=== PATIENT | female | born 1985 | race Caucasian/White ===

== ENCOUNTER 2019-06-25 23:06 | Inpatient (IN) | payer MEDICAID, OTHER ==
[2019-06-25] MEDS ORDERED: Methylergonovine 0.2 MG/1 ML Amp IM PRN (23:20)
[2019-06-25] MEDS ORDERED: Nalbuphine 10 MG/1 ML Vial IVPUSH PRN (23:20)
[2019-06-25] MEDS ORDERED: Sodium Chloride 0.9% 10 ML SDV IV PRN (23:20)
[2019-06-25] MEDS ORDERED: Carboprost Tromethamine 250 MCG/1 ML Amp IM PRN (23:20)
[2019-06-25] MEDS ORDERED: Misoprostol 200 MCG Tab PO PRN (23:20)
[2019-06-25] MEDS ORDERED: Sodium Chloride 0.9% 10 ML Syringe FLUSH PRN (23:20)
[2019-06-25] MEDS ORDERED: Sodium Chloride 0.9% 2.5 ML Syringe FLUSH PRN (23:20)
[2019-06-25] MEDS ORDERED: Lidocaine 1% 50 ML MDV INJECT PRN (23:20)
[2019-06-25] MEDS ORDERED: Tranexamic Acid 1,000 MG in Sodium Chloride 0.9% 100 ML IV PRN (23:20)
[2019-06-25] MEDS ORDERED: Butorphanol 1 MG/ML SDV IVPUSH PRN (23:20)
[2019-06-25] MEDS ORDERED: Water For Irrigation,Sterile 1,000 ML Container IRR PRN (23:20)
[2019-06-25] MEDS ORDERED: Oxytocin/0.9 % Sodium Chloride 30 UNIT/500 ML BAG IV SCH (23:30)
[2019-06-25] MEDS ORDERED: Lactated Ringers 1,000 ML IV SCH (23:30)
--- NOTE | 2019-06-25 23:55 | PCM.PREANE ---
Preanesthetic Assessment - Anesthesia/Transfusion/Family Hx Family History of Anesthesia Reaction: No - Review of Systems General: No Symptoms Pulmonary: No Symptoms Cardiovascular: No Symptoms Gastrointestinal: No Symptoms Neurological: No Symptoms Other: Reports: None - Physical Assessment Height: 1.65 m Weight: 96.162 kg ASA Class: 2E Mental Status: Alert & Oriented x3 Dentition: Reports: Normal Dentition Lungs: Clear to Auscultation, Normal Respiratory Effort Cardiovascular: Regular Rate, Regular Rhythm - Lab Values: Laboratory Last Values WBC 11.14 K/uL (4.0-11.0) H 06/25/19 23:36 RBC 4.19 M/uL (4.30-5.90) L 06/25/19 23:36 Hgb 12.0 g/dL (12.0-16.0) 06/25/19 23:36 Hct 36.6 % (36.0-46.0) 06/25/19 23:36 MCV 87.4 fL (80.0-98.0) 06/25/19 23:36 MCH 28.6 pg (27.0-32.0) 06/25/19 23:36 MCHC 32.8 g/dL (31.0-37.0) 06/25/19 23:36 RDW Std Deviation 46.9 fl (28.0-62.0) 06/25/19 23:36 RDW Coeff of Yaneth 15 % (11.0-15.0) 06/25/19 23:36 Plt Count 282 K/uL (150-400) 06/25/19 23:36 MPV 10.30 fL (7.40-12.00) 06/25/19 23:36 Nucleated RBC % 0.0 /100WBC 06/25/19 23:36 Nucleated RBCs # 0 K/uL 06/25/19 23:36 - Allergies Allergies/Adverse Reactions: Allergies Allergy/AdvReac Type Severity Reaction Status Date / Time No Known Allergies Allergy Verified 03/14/19 13:04 - Acknowledgements Anesthesia Type Planned: Epidural Pt an Appropriate Candidate for the Planned Anesthesia: Yes Alternatives and Risks of Anesthesia Discussed w Pt/Guardian: Yes Pt/Guardian Understands and Agrees with Anesthesia Plan: Yes PreAnesthesia Questionnaire - CURRENT (IN HOUSE) MEDS Current Meds: Current Medications Butorphanol Tartrate (Stadol) 1 mg IVPUSH Q1H PRN PRN Reason: Pain Carboprost Tromethamine (Hemabate Ds) 250 mcg IM ASDIRECTED PRN PRN Reason: Post Hemorrhage Tranexamic Acid 1,000 mg/ (Sodium Chloride) 110 mls @ 660 mls/hr IV ONETIME PRN PRN Reason: Bleeding Lactated Ringer's (Ringers, Lactated) 1,000 mls @ 150 mls/hr IV ASDIRECTED ANANDA Oxytocin/Sodium Chloride (Oxytocin 30 Unit/500 Ml-Ns) 30 unit in 500 mls @ 250 mls/hr IV TITRATE ANANDA Lidocaine HCl (Xylocaine 1%) 50 ml INJECT ONETIME PRN PRN Reason: Laceration repair Methylergonovine Maleate (Methergine) 0.2 mg IM ASDIRECTED PRN PRN Reason: Post Hemorrhage Misoprostol (Cytotec) 200 mcg PO ONETIME PRN PRN Reason: Post Hemorrhage Nalbuphine HCl (Nubain) 10 mg IVPUSH Q1H PRN PRN Reason: Pain (severe 7-10) Sodium Chloride (Saline Flush) 10 ml FLUSH ASDIRECTED PRN PRN Reason: Keep Vein Open Sodium Chloride (Saline Flush) 2.5 ml FLUSH ASDIRECTED PRN PRN Reason: Keep Vein Open Sodium Chloride (Normal Saline) 10 ml IV ASDIRECTED PRN PRN Reason: IV Use Sterile Water (Sterile Water For Irrigation) 1,000 ml IRR ASDIRECTED PRN PRN Reason: delivery
[2019-06-26] MEDS ORDERED: fentaNYL 100 MCG/2 ML SDV ONE (00:01)
[2019-06-26] MEDS ORDERED: Bupivicaine/fentaNYL/NS 250 ML ONE (00:02)
[2019-06-26] MEDS ORDERED: Bupivacaine 0.25% 10 ML SDV ONE (00:02)
--- NOTE | 2019-06-26 00:53 | PCM.LDHP ---
L&D History of Present Illness - General Date of Service: 06/26/19 Admit Problem/Dx: Patient Status Order with Admit Dx/Problem 06/25/19 23:09 Patient Status [ADT] Routine 06/25/19 23:20 Patient Status [ADT] Routine Admission Diagnosis/Problem Admission Diagnosis/Problem Source of Information: Patient History Limitations: Reports: No Limitations - History of Present Illness Improves with: Reports: None Worsens with: Reports: None Associated Symptoms: Reports: N - Related Data Allergies/Adverse Reactions: Allergies Allergy/AdvReac Type Severity Reaction Status Date / Time No Known Allergies Allergy Verified 03/14/19 13:04 H&P Review of Systems - Review of Systems: Review Of Systems: See Below General: Reports: No Symptoms HEENT: Reports: No Symptoms Pulmonary: Reports: No Symptoms Cardiovascular: Reports: No Symptoms Gastrointestinal: Reports: No Symptoms Genitourinary: Reports: No Symptoms Musculoskeletal: Reports: No Symptoms Skin: Reports: No Symptoms Psychiatric: Reports: No Symptoms Neurological: Reports: No Symptoms Hematologic/Lymphatic: Reports: No Symptoms Immunologic: Reports: No Symptoms L&D Exam - Exam Exam: See Below - Vital Signs Weight: 96.162 kg - OB Specific Fundal Height In cm: 38 Contraction Intensity: Moderate Movement: Active Heart Tones: Present Presentation: Vertex - Vargas Score Vargas Score Cervix Position: Anterior Vargas Score Consistency: Soft Vargas Score Effacement: >80% Vargas Score Dilation: > 5 cm Vargas Score Infant's Station: -2 Vargas Score Total: 11 - Exam General: Alert, Oriented HEENT: PERRLA, Conjunctiva Clear, EACs Clear, EOMI, Hearing Intact, Mucosa Moist & Colwell, Nares Patent, Normal Nasal Septum, Posterior Pharynx Clear, TMs Clear Neck: Supple, Trachea Midline Lungs: Clear to Auscultation, Normal Respiratory Effort Cardiovascular: Regular Rate, Regular Rhythm GI/Abdominal Exam: Normal Bowel Sounds, Soft, Non-Tender, No Organomegaly, No Distention, No Abnormal Bruit, No Mass, Pelvis Stable Rectal Exam: Normal Exam, Normal Rectal Tone Genitourinary: Normal external exam, Normal bimanual exam, Normal speculum exam Back Exam: Normal Inspection, Full Range of Motion Extremities: Normal Inspection, Normal Range of Motion, Non-Tender, No Pedal Edema, Normal Capillary Refill Skin: Warm, Dry, Intact Neurological: Cranial Nerves Intact, Reflexes Equal Bilateral Psychiatric: Alert, Normal Affect, Normal Mood - Patient Data Lab Results Last 24 hrs: Laboratory Results - last 24 hr 06/25/19 06/25/19 Range/Units 23:36 23:36 WBC 11.14 H (4.0-11.0) K/uL RBC 4.19 L (4.30-5.90) M/uL Hgb 12.0 (12.0-16.0) g/dL Hct 36.6 (36.0-46.0) % MCV 87.4 (80.0-98.0) fL MCH 28.6 (27.0-32.0) pg MCHC 32.8 (31.0-37.0) g/dL RDW Std Deviation 46.9 (28.0-62.0) fl RDW Coeff of Yaneth 15 (11.0-15.0) % Plt Count 282 (150-400) K/uL MPV 10.30 (7.40-12.00) fL Nucleated RBC % 0.0 /100WBC Nucleated RBCs # 0 K/uL Blood Type O POSITIVE Antibody Screen NEGATIVE Result Diagrams: 06/25/19 23:36 Problem List Initiated/Reviewed/Updated: Yes Orders Last 24hrs: Active Orders 24 hr Category Date Time Status Patient Status [ADT] Routine ADT 06/25/19 23:20 Active Heart Tones [RC] CONTINUOUS Care 06/25/19 23:20 Active Non Stress Test [RC] PER UNIT ROUTINE Care 06/25/19 23:09 Active Non Stress Test [RC] PER UNIT ROUTINE Care 06/25/19 23:20 Active May Shower [RC] ASDIRECTED Care 06/25/19 23:20 Active Notify Provider [RC] PRN Care 06/25/19 23:20 Active Peripheral IV Care [RC] . DIRECTED Care 06/25/19 23:20 Active Up ad [place] [RC] ASDIRECTED Care 06/25/19 23:09 Active Up ad [place] [RC] ASDIRECTED Care 06/25/19 23:20 Active Vaginal Exam [RC] Click to Edit Care 06/25/19 23:09 Active Vaginal Exam [RC] PRN Care 06/25/19 23:20 Active Vital Signs [RC] PER UNIT ROUTINE Care 06/25/19 23:09 Active Vital Signs [RC] PER UNIT ROUTINE Care 06/25/19 23:20 Active RAPID PLASMA REAGIN, QUANT [REF] Routine Lab 06/25/19 23:36 Received Butorphanol [Stadol] Med 06/25/19 23:20 Active 1 mg IVPUSH Q1H PRN Carboprost Tromethamine [Hemabate DS] Med 06/25/19 23:20 Active 250 mcg IM ASDIRECTED PRN Lactated Ringers [Ringers, Lactated] 1,000 ml Med 06/25/19 23:30 Active IV ASDIRECTED Lidocaine 1% [Xylocaine 1%] Med 06/25/19 23:20 Active 50 ml INJECT ONETIME PRN Methylergonovine [Methergine] Med 06/25/19 23:20 Active 0.2 mg IM ASDIRECTED PRN Nalbuphine [Nubain] Med 06/25/19 23:20 Active 10 mg IVPUSH Q1H PRN Oxytocin/0.9 % Sodium Chloride [Oxytocin 30 Unit/500 ML Med 06/25/19 23:30 Active -NS] 30 unit in 500 ml IV TITRATE Sodium Chloride 0.9% [Normal Saline] Med 06/25/19 23:20 Active 10 ml IV ASDIRECTED PRN Sodium Chloride 0.9% [Saline Flush] Med 06/25/19 23:20 Active 10 ml FLUSH ASDIRECTED PRN Sodium Chloride 0.9% [Saline Flush] Med 06/25/19 23:20 Active 2.5 ml FLUSH ASDIRECTED PRN Tranexamic Acid [Cyklokapron] 1,000 mg Med 06/25/19 23:20 Active Sodium Chloride 0.9% [Normal Saline] 100 ml IV ONETIME Water For Irrigation,Sterile [Sterile Water for Med 06/25/19 23:20 Active Irrigation] 1,000 ml IRR ASDIRECTED PRN miSOPROStoL [Cytotec] Med 06/25/19 23:20 Active 200 mcg PO ONETIME PRN Scalp Electrode [WOMSER] Per Unit Routine Oth 06/25/19 23:20 Ordered Peripheral IV Insertion Adult [OM.PC] Routine Oth 06/25/19 23:20 Ordered Resuscitation Status Routine Resus Stat 06/25/19 23:09 Ordered Medication Orders Butorphanol Tartrate (Stadol) 1 mg IVPUSH Q1H PRN PRN Reason: Pain Carboprost Tromethamine (Hemabate Ds) 250 mcg IM ASDIRECTED PRN PRN Reason: Post Hemorrhage Tranexamic Acid 1,000 mg/ (Sodium Chloride) 110 mls @ 660 mls/hr IV ONETIME PRN PRN Reason: Bleeding Lactated Ringer's (Ringers, Lactated) 1,000 mls @ 150 mls/hr IV ASDIRECTED ANANDA Oxytocin/Sodium Chloride (Oxytocin 30 Unit/500 Ml-Ns) 30 unit in 500 mls @ 250 mls/hr IV TITRATE ANANDA Lidocaine HCl (Xylocaine 1%) 50 ml INJECT ONETIME PRN PRN Reason: Laceration repair Methylergonovine Maleate (Methergine) 0.2 mg IM ASDIRECTED PRN PRN Reason: Post Hemorrhage Misoprostol (Cytotec) 200 mcg PO ONETIME PRN PRN Reason: Post Hemorrhage Nalbuphine HCl (Nubain) 10 mg IVPUSH Q1H PRN PRN Reason: Pain (severe 7-10) Sodium Chloride (Saline Flush) 10 ml FLUSH ASDIRECTED PRN PRN Reason: Keep Vein Open Sodium Chloride (Saline Flush) 2.5 ml FLUSH ASDIRECTED PRN PRN Reason: Keep Vein Open Sodium Chloride (Normal Saline) 10 ml IV ASDIRECTED PRN PRN Reason: IV Use Sterile Water (Sterile Water For Irrigation) 1,000 ml IRR ASDIRECTED PRN PRN Reason: delivery Assessment/Plan Comment:: IUP 39wks + in active labor.
[2019-06-26] MEDS ORDERED: Acetaminophen 500 MG Tab PO PRN (01:10)
[2019-06-26] MEDS ORDERED: Ibuprofen 400 MG Tab PO PRN (01:10)
[2019-06-26] MEDS ORDERED: Lanolin 100% Cream 7 GM Tube TOP PRN (01:10)
[2019-06-26] MEDS ORDERED: Benzocaine/Menthol 20%-0.5% Spray 78 GM Cannister TOP PRN (01:10)
[2019-06-26] MEDS ORDERED: oxyCODONE 5 MG Tab PO PRN (01:10)
[2019-06-26] MEDS ORDERED: Docusate Sodium 100 MG Cap PO PRN (01:10)
[2019-06-26] MEDS ORDERED: Witch Hazel Medicated Pads 40/Jar TOP PRN (01:10)
[2019-06-26] MEDS ORDERED: Bisacodyl 10 MG Supp RECTAL PRN (01:10)
[2019-06-26] MEDS: Ibuprofen 800 MG Tab PO PRN (02:00)
[2019-06-26] MEDS: Acetaminophen 500 MG Tab PO PRN ×3 (02:01→18:13)
--- NOTE | 2019-06-26 03:10 | OR ---
SURGEON: Stewart Brunson MD DATE OF PROCEDURE: Ms. Bahena is a 34-year-old patient. She is para 5-0-0-5. She is 39 weeks. She is followed in our clinic primarily by our nurse senior visual designer, Kathy Curtis. The patient's GBS status is negative. She had no complication prenatally. She is admitted in active labor. At the time of admission, she was 5 cm, complete, vertex, with bulging bag of water. She had epidural anesthesia for labor analgesia. The patient progressed to complete, complete. She had an artificial rupture of membrane by tn with clear fluid, and she proceeded to have a normal spontaneous vaginal delivery of a male fetus, cried immediately, and scores reported to be 8 and 9. There was 1 nuchal cord. There was 1 superficial perineal laceration, did not need stitching; no labial or any other laceration. Estimated blood loss was 250 to 300 mL. The placenta delivered spontaneous, complete, and intact; and heart rate was category I through the entire process of labor. YARITZA / ARIES /[id number]
--- NOTE | 2019-06-26 03:51 | PCM48HPAN ---
Post Anesthesia Note - EVALUATION WITHIN 48HRS OF ANESTHETIC Vital Signs in Normal Range: Yes Patient Participated in Evaluation: Yes Respiratory Function Stable: Yes Airway Patent: Yes Cardiovascular Function Stable: Yes Hydration Status Stable: Yes Pain Control Satisfactory: Yes Nausea and Vomiting Control Satisfactory: Yes Mental Status Recovered: Yes
[2019-06-27] MEDS: Ibuprofen 800 MG Tab PO PRN (05:27)
--- NOTE | 2019-06-27 09:13 | PCM.PNPP ---
- General Info Date of Service: 06/27/19 Functional Status: Reports: Pain Controlled - Review of Systems General: Reports: No Symptoms HEENT: Reports: No Symptoms Pulmonary: Reports: No Symptoms Cardiovascular: Reports: No Symptoms Gastrointestinal: Reports: No Symptoms Genitourinary: Reports: No Symptoms Musculoskeletal: Reports: No Symptoms Skin: Reports: No Symptoms Neurological: Reports: No Symptoms Psychiatric: Reports: No Symptoms - General Info Date of Service: 06/27/19 - Patient Data Vital Signs - Most Recent: Last Vital Signs Temp 36.3 C 06/27/19 07:52 Pulse 55 L 06/27/19 07:52 Resp 16 06/27/19 07:52 BP 112/68 06/27/19 07:52 Pulse Ox 97 06/27/19 07:52 Weight - Most Recent: 96.162 kg Lab Results - Last 24 Hours: Laboratory Results - last 24 hr 06/27/19 Range/Units 06:32 Hgb 11.8 L (12.0-16.0) g/dL Hct 36.1 (36.0-46.0) % Med Orders - Current: Current Medications Acetaminophen (Tylenol Extra Strength) 500 mg PO Q4H PRN PRN Reason: Pain Acetaminophen (Tylenol Extra Strength) 1,000 mg PO Q4H PRN PRN Reason: Pain Last Admin: 06/26/19 18:13 Dose: 1,000 mg Benzocaine/Menthol (Dermoplast Pain Relief 20%-0.5% [place]) 78 gm TOP ASDIRECTED PRN PRN Reason: Perineal Comfort Measure Last Admin: 06/26/19 02:56 Dose: 78 gm Bisacodyl (Dulcolax) 10 mg RECTAL ONETIME PRN PRN Reason: Constipation Butorphanol Tartrate (Stadol) 1 mg IVPUSH Q1H PRN PRN Reason: Pain Carboprost Tromethamine (Hemabate Ds) 250 mcg IM ASDIRECTED PRN PRN Reason: Post Hemorrhage Docusate Sodium (Colace) 100 mg PO BID PRN PRN Reason: Constipation Emollient Ointment (Lansinoh Hpa) 0 gm TOP ASDIRECTED PRN PRN Reason: Sore Nipples Tranexamic Acid 1,000 mg/ (Sodium Chloride) 110 mls @ 660 mls/hr IV ONETIME PRN PRN Reason: Bleeding Lactated Ringer's (Ringers, Lactated) 1,000 mls @ 150 mls/hr IV ASDIRECTED [facility] Last Admin: 06/25/19 23:30 Dose: 500 mls/hr Oxytocin/Sodium Chloride (Oxytocin 30 Unit/500 Ml-Ns) 30 unit in 500 mls @ 250 mls/hr IV TITRATE [facility] Last Admin: 06/26/19 01:10 Dose: 250 mls/hr Ibuprofen (Motrin) 400 mg PO Q4H PRN PRN Reason: Pain Ibuprofen (Motrin) 800 mg PO Q6H PRN PRN Reason: Pain Last Admin: 06/27/19 05:27 Dose: 800 mg Lidocaine HCl (Xylocaine 1%) 50 ml INJECT ONETIME PRN PRN Reason: Laceration repair Methylergonovine Maleate (Methergine) 0.2 mg IM ASDIRECTED PRN PRN Reason: Post Hemorrhage Misoprostol (Cytotec) 200 mcg PO ONETIME PRN PRN Reason: Post Hemorrhage Nalbuphine HCl (Nubain) 10 mg IVPUSH Q1H PRN PRN Reason: Pain (severe 7-10) Oxycodone HCl (Oxycodone) 5 mg PO Q2H PRN PRN Reason: Pain Sodium Chloride (Saline Flush) 10 ml FLUSH ASDIRECTED PRN PRN Reason: Keep Vein Open Sodium Chloride (Saline Flush) 2.5 ml FLUSH ASDIRECTED PRN PRN Reason: Keep Vein Open Sodium Chloride (Normal Saline) 10 ml IV ASDIRECTED PRN PRN Reason: IV Use Sterile Water (Sterile Water For Irrigation) 1,000 ml IRR ASDIRECTED PRN PRN Reason: delivery Witch Yoselyn (Tucks) 1 pad TOP ASDIRECTED PRN PRN Reason: comfort care Discontinued Medications Bupivacaine HCl (Sensorcaine-Mpf 0.25%) Confirm Administered Dose 10 ml .ROUTE .[employer]-MED ONE Stop: 06/26/19 00:03 Last Admin: 06/26/19 07:46 Dose: Not Given Fentanyl (Sublimaze) Confirm Administered Dose 100 mcg .ROUTE .STK-MED ONE Stop: 06/26/19 00:02 Last Admin: 06/26/19 07:46 Dose: Not Given Fentanyl/Bupivacaine HCl (Fentanyl/Bupivacaine/Ns 2 Mcg-0.125% 250 Ml) Confirm Administered Dose 250 mls @ as directed .ROUTE .STK-MED ONE Stop: 06/26/19 00:03 Last Admin: 06/26/19 07:46 Dose: Not Given - Infant Interaction Disposition, : [place] in Room with Family Interaction: Holding Infant Feeding: Attempted ; Nursed Fair/Poor Support Person: - Recovery Exam Fundal Tone: Firm Fundal Level: At Umbilicus Fundal Placement: Midline Lochia Amount: Scant Lochia Color: Rubra/Red Perineum Description: Other (see below) Other Perinuem Description: skid fofana Episiotomy/Laceration: None Bladder Status: Voiding - Exam General: Alert, Oriented HEENT: Pupils Equal Neck: Supple Lungs: Clear to Auscultation, Normal Respiratory Effort Cardiovascular: Regular Rate, Regular Rhythm GI/Abdominal Exam: Normal Bowel Sounds, Soft, Non-Tender, No Organomegaly, No Distention, No Abnormal Bruit, No Mass, Pelvis Stable Extremities: Normal Inspection, Normal Range of Motion, Non-Tender, No Pedal Edema, Normal Capillary Refill Skin: Warm, Dry, Intact Wound/Incisions: Healing Well Neurological: No New Focal Deficit Psy/Mental Status: Alert, Normal Affect, Normal Mood - Problem List Review Problem List Initiated/Reviewed/Updated: Yes - My Orders Last 24 Hours: My Active Orders 06/26/19 Lunch Regular Diet [DIET] - Assessment Assessment:: Status post normal spontaneous vaginal delivery patient is doing well we would send her home today to be followed in the office at 6 weeks - Plan Plan:: IUP 39wks + in active labor.
== END 2019-06-27 11:30 | disposition home or self-care (01) | DRG 807 ==
LOC: MW.OBCHECK 23:06 → MW.OB 23:07 → MW.OBCHECK 23:20 → OBSVTOIN 06-26 01:05 → MW.OB 06-26 04:45
PROVIDERS: ADMIT Obstetrics & Gynecology; ATTEND Obstetrics & Gynecology
PROC: 10E0XZZ Delivery of Products of Conception, External Approach (ICD-10-PCS; principal; 2019-06-26)
PROC: 10907ZC Drainage of Amniotic Fluid, Therapeutic from Products of Conception, Via Natural or Artificial Opening (ICD-10-PCS; 2019-06-26)
PROC: 3E0R3BZ Introduction of Anesthetic Agent into Spinal Canal, Percutaneous Approach (ICD-10-PCS; 2019-06-26)
DX: O69.81X0 Labor and delivery complicated by cord around neck, without compression, not applicable or unspecified (principal); Z37.0 Single live birth; Z3A.37 37 weeks gestation of pregnancy
CPT/HCPCS: 01967; 36415; 59025; 59409; 85014; 85018; 85027; 86593; 86850; 86900; 86901; A9270-GY; J2590; J7120

== ENCOUNTER 2021-11-04 21:12 | Emergency (ER) | payer OTHER, BC ==
[2021-11-04] MEDS ORDERED: Morphine 4 MG/ML VIAL ONE (21:19)
[2021-11-04] MEDS ORDERED: Ondansetron 4 MG/2 ML SDV ONE (21:19)
[2021-11-04] MEDS ORDERED: Sodium Chloride 0.9% 10 ML Syringe FLUSH PRN ×2 (21:20)
[2021-11-04] MEDS ORDERED: Sodium Chloride 0.9% 2.5 ML Syringe FLUSH PRN ×2 (21:20)
[2021-11-04] MEDS ORDERED: Sodium Chloride 0.9% 1,000 ML IV ONE (21:20)
[2021-11-04] MEDS ORDERED: Diphtheria,Pertussis(Acell),Tetanus Vaccine 0.5 ML Syringe IM ONE (21:20)
[2021-11-04] MEDS ORDERED: Ondansetron 4 MG/2 ML SDV IVPUSH ONE (21:50)
[2021-11-04] MEDS ORDERED: Morphine 4 MG/ML VIAL IVPUSH ONE (21:51)
[2021-11-04 21:53] LABS: BLOOD UREA NITROGEN,BUN 9 mg/dL (7.0-18.0); CARBON DIOXIDE,CO2 23.1 mmol/L (21.0-32.0); CHLORIDE,CL 102 mmol/L (98-107); GLUCOSE RANDOM 108 mg/dL (74-106); LIPASE 121 U/L (73-393); POTASSIUM,K 3.9 mmol/L (3.5-5.1); SODIUM,NA 136 mmol/L (136-145)
[2021-11-04] MEDS ORDERED: Acetaminophen 500 MG Tab PO ONE (23:09)
== END 2021-11-04 23:33 | disposition home or self-care (01) ==
LOC: MW.ED 21:12
DX: O9A.23 Injury, poisoning and certain other consequences of external causes complicating the puerperium (principal); S00.03XA Contusion of scalp, initial encounter; S80.212A Abrasion, left knee, initial encounter; S60.512A Abrasion of left hand, initial encounter; Z3A.22 22 weeks gestation of pregnancy; Z23 Encounter for immunization; V89.2XXA Person injured in unspecified motor-vehicle accident, traffic, initial encounter; Y92.410 Unspecified street and highway as the place of occurrence of the external cause
CPT/HCPCS: 36415; 70450; 72125; 73070; 73120; 73560; 76815; 80053; 80305; 80307; 81001; 83690; 84702; 85025; 85610; 86850; 86900; 86901; 90471; 90715; 93005; 96374; 96375; 99291; A9270; J2270; J2405; J3490; J7030; 99283

== ENCOUNTER 2022-01-25 17:44 | Emergency (ER) | payer BC ==
[2022-01-25] MEDS ORDERED: Benzocaine 20% Topical Spray UD MUCMEM ONE (17:57)
[2022-01-25] MEDS ORDERED: Lidocaine 2% Viscous Solution 15 ML UD PO ONE (17:57)
== END 2022-01-25 18:15 | disposition home or self-care (01) ==
LOC: MW.ED 17:44
DX: K04.7 Periapical abscess without sinus (principal); Z79.899 Other long term (current) drug therapy
CPT/HCPCS: 99282; A9270; 99283

== ENCOUNTER 2022-02-24 06:34 | Inpatient (IN) | payer BC ==
[2022-02-24] MEDS ORDERED: Oxytocin/0.9 % Sodium Chloride 30 UNIT/500 ML BAG IV SCH ×2 (08:30)
[2022-02-24] MEDS ORDERED: Butorphanol 1 MG/ML SDV IVPUSH PRN (08:30)
[2022-02-24] MEDS ORDERED: Misoprostol 200 MCG Tab PO PRN (08:30)
[2022-02-24] MEDS ORDERED: Lidocaine 1% 50 ML MDV INJECT PRN (08:30)
[2022-02-24] MEDS ORDERED: Water For Irrigation,Sterile 1,000 ML Container IRR PRN (08:30)
[2022-02-24] MEDS ORDERED: Sodium Chloride 0.9% 10 ML Syringe FLUSH PRN (08:30)
[2022-02-24] MEDS ORDERED: Sodium Chloride 0.9% 20 ML SDV IV PRN (08:30)
[2022-02-24] MEDS ORDERED: Sodium Chloride 0.9% 2.5 ML Syringe FLUSH PRN (08:30)
[2022-02-24] MEDS ORDERED: Carboprost Tromethamine 250 MCG/1 ML Amp IM PRN (08:30)
[2022-02-24] MEDS ORDERED: Tranexamic Acid 1,000 MG in Sodium Chloride 0.9% 100 ML IV PRN (08:30)
[2022-02-24] MEDS ORDERED: Ondansetron 4 MG/2 ML SDV IVPUSH PRN (08:30)
[2022-02-24] MEDS ORDERED: Ampicillin 2 GM in Sodium Chloride 0.9% 100 ML IV ONE (08:30)
[2022-02-24] MEDS ORDERED: Terbutaline 1 MG/ML SDV SUBCUT PRN (08:30)
[2022-02-24] MEDS ORDERED: Methylergonovine 0.2 MG/1 ML Amp IM PRN (08:30)
[2022-02-24] MEDS ORDERED: Misoprostol 25 MCG (1/4 of 100 MCG) Tab PO PRN ×2 (08:45→12:45)
[2022-02-24] MEDS ORDERED: Misoprostol 25 MCG (1/4 of 100 MCG) Tab VAG PRN ×2 (08:45→12:45)
[2022-02-24] MEDS: Lactated Ringers 1,000 ML IV SCH ×2 (09:00→14:31)
[2022-02-24] MEDS ORDERED: Ampicillin 1 GM in Sodium Chloride 0.9% 50 ML IV SCH (12:30)
[2022-02-24] MEDS ORDERED: Ropivacaine/PF 400 MG/200 ML PCA ONE (14:32)
[2022-02-24] MEDS ORDERED: ePHEDrine 50 MG/ML SDV IVPUSH PRN (14:44)
[2022-02-24] MEDS ORDERED: Phenylephrine HCl In 0.9% NaCl 1 MG/10 ML Vial IVPUSH SCH (14:45)
[2022-02-24] MEDS ORDERED: Ropivacaine HCl/PF 400 MG in Premix Bag 1 BAG EPIDUR SCH (14:45)
[2022-02-24] MEDS ORDERED: Bisacodyl 10 MG Supp RECTAL PRN (15:52)
[2022-02-24] MEDS ORDERED: Acetaminophen 500 MG Tab PO PRN (15:52)
[2022-02-24] MEDS ORDERED: Benzocaine/Menthol 20%-0.5% Spray 78 GM Cannister TOP PRN (15:52)
[2022-02-24] MEDS ORDERED: Witch Hazel Medicated Pads 40/Jar TOP PRN (15:52)
[2022-02-24] MEDS ORDERED: oxyCODONE 5 MG Tab PO PRN (15:52)
[2022-02-24] MEDS ORDERED: Lanolin 100% Cream 7 GM Tube TOP PRN (15:52)
[2022-02-24] MEDS ORDERED: Ibuprofen 400 MG Tab PO PRN (15:52)
[2022-02-24] MEDS ORDERED: Docusate Sodium 100 MG Cap PO PRN (15:52)
[2022-02-24] MEDS: Acetaminophen 500 MG Tab PO PRN (16:23)
[2022-02-25] MEDS: Ibuprofen 800 MG Tab PO PRN ×2 (00:16→08:00)
[2022-02-25] MEDS: Acetaminophen 500 MG Tab PO PRN (00:17)
== END 2022-02-25 18:59 | disposition home or self-care (01) | DRG 560 ==
LOC: MW.OBCHECK 06:34 → MW.OB 06:36 → MW.OBCHECK 08:45 → MW.OB 08:46 → OBSVTOIN 14:44 → MW.OB 16:52
PROVIDERS: ADMIT Obstetrics & Gynecology; ATTEND Obstetrics & Gynecology
PROC: 10E0XZZ Delivery of Products of Conception, External Approach (ICD-10-PCS; principal; 2022-02-24)
PROC: 10907ZC Drainage of Amniotic Fluid, Therapeutic from Products of Conception, Via Natural or Artificial Opening (ICD-10-PCS; 2022-02-24)
DX: O99.824 Streptococcus B carrier state complicating childbirth (principal); Z3A.39 39 weeks gestation of pregnancy; Z37.0 Single live birth; Z20.822 Contact with and (suspected) exposure to COVID-19
CPT/HCPCS: 01967; 36415; 59025; 59409; 85014; 85018; 85027; 86592; 86850; 86900; 86901; A9270-GY; J0290; J2590; J2795; J7120; U0002

== ENCOUNTER 2023-08-21 21:27 | Emergency (ER) | payer SELFPAY ==
[2023-08-21] MEDS: HYDROmorphone 1 MG/ML Syringe IVPUSH ONE (21:49)
[2023-08-21] MEDS: HYDROmorphone 2 MG/ML Syringe IVPUSH ONE (22:07)
[2023-08-21] MEDS: Ondansetron 4 MG/2 ML SDV IVPUSH ONE (23:58)
== END 2023-08-21 22:40 | disposition home or self-care (01) ==
LOC: MW.ED 21:27
DX: S01.01XA Laceration without foreign body of scalp, initial encounter (principal); S09.90XA Unspecified injury of head, initial encounter; W19.XXXA Unspecified fall, initial encounter
CPT/HCPCS: 70450; 96374; 96375; 99284; J1170; J2405

== ENCOUNTER 2023-08-28 16:24 | Emergency (ER) | payer SELFPAY | END 2023-08-28 18:51 | disposition left against medical advice (07) | LOC: MW.ED 16:24 | DX: Z53.21 Procedure and treatment not carried out due to patient leaving prior to being seen by health care provider (principal) ==

== ENCOUNTER 2023-08-29 17:00 | Emergency (ER) | payer SELFPAY | END 2023-08-29 17:43 | disposition left against medical advice (07) | LOC: MW.ED 17:00 | DX: S01.81XD Laceration without foreign body of other part of head, subsequent encounter (principal); Z48.02 Encounter for removal of sutures | CPT/HCPCS: 99281 ==